=== PATIENT | female | born 2000 | race Two or more races ===

== ENCOUNTER 2024-11-20 06:23 | Inpatient (IN) | payer MEDICAID, SELFPAY ==
[2024-11-20] VITALS (266 sets, daily range): BP systolic 93–137; BP diastolic 50–90; PULSE 69–133; RESP 17–99; TEMP 36.6–37.7; O2SAT 96–100; BMI 23.6
--- NOTE | 2024-11-20 07:29 | PD.LDHP ---
Documentation for date of: 11/20/24 OB Labor/Induct. HPI History of Present Illness Chief complaint: 23 y/o 39w 1d presents to L&D with SROM in early labor : 1 Para: 0 Term pregnancies: 0 pregnancies: 0 Living children: 0 History of Abortions: Spontaneous and Elective: 0 History of Vaginal deliveries: 0 History of sections: No History of : No JASON: 11/26/24 Gestational Age (weeks): 39 Gestational Age (days): 1 History of present illness: 23 y/o 39w 1d presents to L&D with SROM, grossly ruptured in early labor. Cervix is 1/thick/-3 vertex, pelvic outlet is bit narrow. Pt has no family history of C/S. Mother delivered vaginally. GBS is neg. Pt's has been complicated by GDM diet and anemia. Pt has had excellent BS control during . EFW is about 3000g History of Present Dating criteria: based on 2nd trimester US only ([facility] sono confirmed due date) Adequate Care: Yes Ultrasounds: normal 1st trimester US and normal mid trimester US Obstetrical complications: gestational diabetes (Diet) and other (Anemia) Labs Maternal Blood Type: B Pos Labs: Negative: RPR, Hepatitis B, Rubella Titre, HIV, Chlamydia, Gonorrhea and Group Beta Strep and Unknown: Herpes Type 1, Herpes Type 2 and Covid-19 Review of Systems Review of Systems Systems Reviewed: All systems reviewed, normal except as documented Past Medical History Surgical History SURGICAL: Negative Section Meds Home Medications and Allergies Home Medications ?Medication ?Instructions ?Recorded ?Confirmed ?Type No Known Home Medications 11/20/24 11/20/24 History Allergies Allergy/AdvReac Type Severity Reaction Status Date / Time No Known Allergies Allergy Verified 11/20/24 07:47 OB Exam Physical Exam Vital signs: Temp Pulse Resp BP 99.0 F 83 17 122/84 11/20/24 06:40 11/20/24 07:22 11/20/24 06:39 11/20/24 07:22 Constitutional Constitutional: no acute distress Routine HEENT Exam Head: Present normocephalic and atraumatic Eye: Present EOMI, PERRL and normal accommodation ENT: Present mucous membranes moist Routine Neck Exam Neck: Present full ROM Routine Respiratory Exam Respiratory: Absent respiratory distress Routine Cardiovascular Exam Cardiovascular: Present RRR Routine Abdominal Exam Abdominal: Present soft Comments: Gravid uterus EFW 3000g Routine Exam External: Present normal urethra appearance; Absent lesions Detailed Labor and Delivery Exam Dilation (cm): 1 Effacement (%): thick Cervix position: posterior station: -3 Consistency: soft Presentation: Vertex Membranes: ruptured Amniotic fluid: clear Baseline heart rate: 130 monitor accelerations: 15x15 monitor decelerations: None linseed oil press tender variability: Moderate (11-25) Contraction frequency (min): 2-6 Routine Extremities Exam Extremities: Present full ROM Routine Back/Spine/Pelvis Exam Back/Spine: Present full ROM Routine Skin Exam Skin: Present intact, dry and warm Routine Neurological Exam Neurological: Present alert, oriented X3 and CN II-XII intact Routine Psychiatric Exam Psychiatric: Present normal affect and normal thought process OB Results Labs 11/20/24 07:15 OB Assessment & Plan Assessment and Plan (1) Normal labor: Status: Acute (2) Diet controlled gestational diabetes mellitus (GDM): Status: Acute (3) Anemia affecting in third trimester: Status: Acute (4) Spontaneous rupture of amniotic membranes: Status: Acute Additional Plan Induction method: none Plan: augmentation, anticipate NVD and consult prn Additional Plan Comment: Routine admit orders Continuous EFM Consult anesthesia for an epidural (2) Diet controlled gestational diabetes mellitus (GDM) Qualifiers: Trimester: third trimester Qualified Code(s): O24.410 - Gestational diabetes mellitus in , diet controlled
[2024-11-20 08:45] LABS: Basophils % (Auto) 0 % (0-2.5); Eosinophils # (Auto) 0.1 Thou/mm3 (0.0-0.5); Eosinophils % (Auto) 1 % (0-10); Hematocrit 36.5 % (36.0-46.0); Hemoglobin 11.8 g/dL (12.0-16.0); Immature Granulocytes % (Auto) 1 % (0-0); Immature Granulocytes Auto 0.05 Thou/mm3 (0.00-0.00); Lymphocytes # (Auto) 3.6 Thou/mm3 (1.0-4.8); Lymphocytes % (Auto) 34 % (10-50); Mean Corpuscular HGB Conc 32.3 g/dl (31.0-37.0); Mean Corpuscular Volume 81 fL (80-100); Monocytes # (Auto) 0.7 Thou/mm3 (0.0-0.8); Monocytes % (Auto) 6 % (0-12); Neutrophils # (Auto) 6.3 Thou/mm3 (1.8-7.7); Neutrophils % (Auto) 59 % (37-80); Nucleated Red Blood Cell % 0 /100 WBC (0); Platelet Count 204 Thou/mm3 (140-440); RDW Standard Deviation 56.7 fL (36.4-46.3); Red Blood Count 4.53 Miln/mm3 (4.00-5.20); White Blood Count 10.7 Thou/mm3 (3.6-11.0)
[2024-11-20 09:18] LABS: Syphilis Nonreactive (Nonreactive)
--- NOTE | 2024-11-20 09:40 | PD.LDPN ---
Documentation for date of: 11/20/24 OB Labor Progress Note Pain Control Pain control: other (requesting an epidural) Pelvic Exam Dilation (cm): 3 Effacement (%): 80 station: 0 Amniotic membrane status: Ruptured Contractions Monitor mode: External Contraction frequency: 2-3 Contraction duration: 40-60 Contraction phase: Contraction Contraction intensity: Moderate Status status: Category l Assessment and Plan Assessment: other (Latent labor) Plan OB labor note: continuous present management Comments: Pt to get an epidural Pt is in labor Dr. Ardon updated Anticipate
[2024-11-20] MEDS: RINGERS LACTATED 1000 ML 1,000 ML 125 ML IV ×4 (10:53→15:49)
[2024-11-20 13:30] LABS: Amphetamine/Metham Scrn,Ur OB Negative (Negative); Benzoylecgonine Screen, Ur OB Negative (Negative); Opiate Screen,Urine OB Negative (Negative); THC Screen,Urine OB Negative (Negative)
--- NOTE | 2024-11-20 14:30 | PD.LDPN ---
Documentation for date of: 11/20/24 OB Labor Progress Note Pain Control Pain control: epidural Pelvic Exam Dilation (cm): 5 Effacement (%): 90 station: 0 Amniotic membrane status: Ruptured Contractions Monitor mode: External Contraction frequency: 3-5 Contraction phase: Contraction Contraction intensity: Moderate Status status: Category l Assessment and Plan Assessment: active labor Plan OB labor note: begin Pitocin augmentation Comments: Pt is comfortable with the epidural Start pitocin per protocol Anticipate
[2024-11-20] MEDS: OXYTOCIN in NS 30 units 30 UNIT/500 ML BAG IV (14:45)
--- NOTE | 2024-11-20 16:28 | PD.LDPN ---
Documentation for date of: 11/20/24 OB Labor Progress Note Pain Control Pain control: epidural Pelvic Exam Effacement (%): 90 station: +1 Amniotic membrane status: Ruptured Comments: Bloody show Contractions Monitor mode: External Contraction frequency: 2-3 Contraction duration: 40-60 Contraction phase: Contraction Contraction intensity: Strong Status status: Category l Assessment and Plan Assessment: active labor Plan OB labor note: continuous present management Comments: Pt is progressing well, some bloody show, abdomen is non-tender, cat 1 tracing. Anticipate
[2024-11-20] MEDS: ACETAMINOPHEN IVPB 1,000 MG/100 ML VIAL 250 MG IV (16:47)
--- NOTE | 2024-11-20 18:11 | PD.LDPN ---
Documentation for date of: 11/20/24 OB Labor Progress Note Pain Control Pain control: epidural Pelvic Exam Dilation (cm): 9 Effacement (%): 90 station: +1 Amniotic membrane status: Ruptured Contractions Monitor mode: External Contraction frequency: 2-3 Contraction duration: 40-60 Contraction pattern: Tachysystole Contraction phase: Contraction Contraction intensity: Strong Status status: Category ll Assessment and Plan Assessment: active labor Plan OB labor note: continuous present management Comments: Terbutaline x1 now Scalp stim, reactive Dr. Ardon updated Anticipate
[2024-11-20] MEDS: TERBUTALINE SULF INJ 1 MG/ML VIAL 0.25 MG SC (18:12)
--- NOTE | 2024-11-20 19:04 | PD.LDPN ---
Documentation for date of: 11/20/24 OB Labor Progress Note Pain Control Pain control: epidural Pelvic Exam Dilation (cm): 8 Effacement (%): 90 station: +1 Amniotic membrane status: Ruptured Contractions Monitor mode: External Contraction frequency: 2-4 Contraction duration: 40-60 Contraction phase: Contraction Contraction intensity: Strong Status status: Category l Assessment and Plan Assessment: active labor Plan OB labor note: continuous present management Comments: Pt was zaria at last check, fetus was lower, but pt is not 9 cm, pt is 8 cm SROM since 429, so will start abx now Anticipate
[2024-11-20] MEDS: Ampicillin Inj 2,000 MG in SODIUM CHLORIDE 0.9% (POP) 100 ML 200 MG IV (19:20)
[2024-11-20] MEDS: Ampicillin Inj 1,000 MG in SODIUM CHLORIDE 0.9% (Popper) 50 ML 50 MG IV (23:24)
[2024-11-21] VITALS (56 sets, daily range): BP systolic 101–166; BP diastolic 56–101; PULSE 68–126; RESP 16–20; TEMP 36.4–37.9; O2SAT 93–100
[2024-11-21] MEDS: ACETAMINOPHEN IVPB 1,000 MG/100 ML VIAL 250 MG IV (00:47)
[2024-11-21] MEDS: TERBUTALINE SULF INJ 1 MG/ML VIAL 0.25 MG SC (01:23)
[2024-11-21] MEDS: METOCLOPRAMIDE INJ 5 MG/ML VIAL 2 ML 10 MG IVP (02:05)
[2024-11-21] MEDS: FAMOTIDINE INJ 10 MG/ML VIAL 2 ML 20 MG IV (02:05)
[2024-11-21] MEDS: ceFAZolin/D5W 2 GM IV 2 GM/100 ML BAG IV (02:05)
--- NOTE | 2024-11-21 02:13 | PD.LDPN ---
Documentation for date of: 11/21/24 OB Labor Progress Note Pelvic Exam Dilation (cm): 9 Effacement (%): 90 station: +1 Amniotic membrane status: Ruptured Comments: I was called by the charge nurse at 1:37 AM to review the strip. Patient had a prolonged deceleration lasting for about 4 minutes. On examination by the nurse she was reported to me as having anterior thick lip. Of note this patient has been 8 cm since 6 PM. Patient has a prolonged rupture of membranes. On review of heart tone variability was minimal since 11:30 PM although there were accelerations present. Tachysystole noted and orders for withholding Pitocin and giving terbutaline given. After about 15 to 20 minutes of terbutaline even if the contractions are spaced apart the variability continues to be minimal and along with that baby is now tachycardic with a baseline in 160. Accelerations are still present. Looking at the overall clinical picture primary low-transverse was called for category 2 heart tone. Although she did not meet the criteria for failure to progress, which is no change in cervical status over 6 hours in spite of Pitocin and rupture of membrane, the patient chávez has made very minimal cervical private branch exchange service advisor the past 8 hours. I discussed the option of expectant management with the patient and chances of chorioamnionitis. Primary low-transverse called within 30 minutes Contractions Monitor mode: External Contraction frequency: 2-4 Contraction pattern: Tachysystole Contraction phase: Contraction Contraction intensity: Strong Status status: Category l
--- NOTE | 2024-11-21 03:14 | EKG_ITS ---
[facility] Test Date: 2024-11-21 Pat Name: LATOYA GOMEZ [facility] Gender[facility] Female Manager Ccu: ECOBN1 : 2000 Requested By: Bryanna Ardon Order Number: [id number] Reading MD: Bryanna Ardon Measurements Intervals [place] Rate: 107 P: 63 GA: 144 QRS: 63 QRSD: 73 T: 36 QT: 342 QTc: 458 Interpretive Statements SINUS TACHYCARDIA LOW QRS VOLTAGE IN EXTREMITY LEADS ABNORMAL RHYTHM ECG No previous ECG available for comparison /[id number]/[email or web address]/[id number]/[id number]
--- NOTE | 2024-11-21 03:14 | XR_ITS ---
Examination: AP chest single view Technique one AP portable semiupright chest single view Exam date and time: November 21, 2024 0326 hrs. Indications: Sepsis alert Findings: No significant cardiac enlargement taking into account AP projection Mild vascular congestion. No lobar pneumonia Impression: No lobar pneumonia
--- NOTE | 2024-11-21 03:16 | ESOP_ITS ---
Operative Note - MECHANICAL PROJECT MANAGER Procedure Date of procedure: 11/21/24 Procedure Performed: primary Low transverse Csection Indication: cat 2 FHT, Prolonged decel for 4 minutes minimal variability, tachycardia maternal fever, possible chorioamnionitis Pre-Op diagnosis: same Post-Op diagnosis: triple antibiotics ordered Sepsis work up Anesthesia type: Spinal Procedure description: Informed consent was obtained and the patient was taken to the operating room.? Identity was confirmed by double identifiers and she was placed on the operating table.The abdomen and perineum were prepped in the usual sterile fashion and a Claire catheter was placed to continuous drainage.? Sterile drapes were applied.??A Pfannenstiel skin incision was made with a scalpel and carried to the subcutaneous fat up to the rectus fascia.? The rectus fascia was incised on either side of the midline and the incisions were extended bilaterally.? The fascia was gently dissected off the ventral surface of the rectus muscle both superiorly and inferiorly. extensive adhesiolysis was done between musle , peritoneum. Carefully a peritioneal window created hysterotomy incision made and extended bluntly with finger. Rupture of membranes revealed clear fluid. The baby was found vertex presentation and was delivered via vertex. The umbilical cord , was doubly clamped, divided and the was handed over to the waiting team. The placenta delivered by controlled cord traction . The interior of the uterus was now thorougly cleaned of all blood and debris and membranes.?The? hysterotomy was closed using 0 vicryl suture in double layers. Once the repair was completed the hysterotomy was inspected, was noted to be adequately hemostatic. The rectus fascia was repaired using 0 vicryl in a running fashion.? The subcutaneous layer was now, approximated with 3-0 vicryl in double layers.? All bleeding points were cauterized using the Bovie.?The skin was closed using 4-0 Monocryl in a subcuticular fashion.? The skin was cleaned and a sterile dressing was applied. The patient was now undraped, the abdomen and back were thoroughly cleaned and she was now transferred to the recovery room in a stable condition Estimated blood loss (ml): 400 Diagnosis Problem List Completed Was Problem List Reviewed/Reconciled?: Yes
--- NOTE | 2024-11-21 03:21 | PD.LDDELS ---
Data (Garcia) Data Hx Section: No : 1 Term: 0 : 0 : 0
--- NOTE | 2024-11-21 03:27 | PD.EVENT ---
Documentation for date of: 11/21/24 Event Note Event Note: while in the OR , the patient had an episode where she was not following commands from anasthesia provider to breathe deeply. O2 saturation was 96% with mask and patinet had tachycardia. Patinet also was febrile. baby was delivered. After the procedure there was satisfactory venntillatory effort.Sepsis work up ordered, triple antibiotic started IV fluid 2-3 L to be given. DIC panel was ordered
[2024-11-21 03:44] LABS: Basophils % (Auto) 0 % (0-2.5); Eosinophils % (Auto) 0 % (0-10); Hematocrit 30.2 % (36.0-46.0); Hemoglobin 9.9 g/dL (12.0-16.0); Immature Granulocytes % (Auto) 1 % (0-0); Immature Granulocytes Auto 0.13 Thou/mm3 (0.00-0.00); Lymphocytes # (Auto) 0.9 Thou/mm3 (1.0-4.8); Lymphocytes % (Auto) 4 % (10-50); Mean Corpuscular HGB Conc 32.8 g/dl (31.0-37.0); Mean Corpuscular Hemoglobin 26.8 pg (25.0-35.0); Mean Corpuscular Volume 82 fL (80-100); Monocytes # (Auto) 1.6 Thou/mm3 (0.0-0.8); Monocytes % (Auto) 7 % (0-12); Neutrophils # (Auto) 19.3 Thou/mm3 (1.8-7.7); Neutrophils % (Auto) 88 % (37-80); Nucleated Red Blood Cell % 0 /100 WBC (0); Platelet Count 168 Thou/mm3 (140-440); RDW Standard Deviation 58.7 fL (36.4-46.3); Red Blood Count 3.69 Miln/mm3 (4.00-5.20)
[2024-11-21 03:46] LABS: Lactate (Lactic Acid) 6.1 mMol/L (0.4-2.0)
[2024-11-21] MEDS: RINGERS LACTATED 1000 ML 1,000 ML 999 ML IV ×2 (03:48→05:28)
[2024-11-21 04:01] LABS: Fibrinogen 415 mg/dL (175-375); INR 0.9 (0.9-1.3); Partial Thromboplastin Time 33.8 Seconds (22.0-36.0); Prothrombin Time 10.4 Seconds (9.0-12.2)
[2024-11-21 04:01] LABS: Troponin I < 0.002 ng/mL (0.0-0.045)
[2024-11-21] MEDS: Ampicillin Inj 2,000 MG in SODIUM CHLORIDE 0.9% (POP) 100 ML 200 MG IV ×3 (04:08→16:23)
[2024-11-21 04:10] LABS: D-Dimer > 3820 ng/mL (<600)
--- NOTE | 2024-11-21 04:13 | PC.NURSE ---
Md garcia called for results of lactic acid and fibrinogen. made aware of results. new order for 2 more LR bolus then 2 pits to follow.
[2024-11-21 04:20] LABS: B-Type Natriuretic Peptide 410 pg/mL (0-100)
[2024-11-21] MEDS: CLINDAMYCIN 900MG IVPB 900 MG in PRE-MIXED 1 BAG 50 MG IV ×3 (04:50→21:53)
[2024-11-21 06:35] LABS: Reflex Lactate? Y
[2024-11-21 07:22] LABS: Basophils # (Auto) 0.1 Thou/mm3 (0.0-0.2); Basophils % (Auto) 0 % (0-2.5); Eosinophils % (Auto) 0 % (0-10); Hematocrit 32.4 % (36.0-46.0); Hemoglobin 10.8 g/dL (12.0-16.0); Immature Granulocytes % (Auto) 1 % (0-0); Immature Granulocytes Auto 0.15 Thou/mm3 (0.00-0.00); Lymphocytes # (Auto) 1.3 Thou/mm3 (1.0-4.8); Lymphocytes % (Auto) 5 % (10-50); Mean Corpuscular HGB Conc 33.3 g/dl (31.0-37.0); Mean Corpuscular Hemoglobin 26.2 pg (25.0-35.0); Mean Corpuscular Volume 79 fL (80-100); Monocytes # (Auto) 1.1 Thou/mm3 (0.0-0.8); Monocytes % (Auto) 4 % (0-12); Neutrophils # (Auto) 26.1 Thou/mm3 (1.8-7.7); Neutrophils % (Auto) 91 % (37-80); Nucleated Red Blood Cell # 0.02 Thou/mm3 (0.00-0.00); Nucleated Red Blood Cell % 0 /100 WBC (0); Platelet Count 181 Thou/mm3 (140-440); RDW Standard Deviation 55.5 fL (36.4-46.3); Red Blood Count 4.12 Miln/mm3 (4.00-5.20); White Blood Count 28.7 Thou/mm3 (3.6-11.0)
[2024-11-21 07:40] LABS: Anion Gap 10 (7-16); BUN/Creatinine Ratio 10 Ratio (12-20); Blood Urea Nitrogen 6 mg/dL (9-23); Carbon Dioxide 20.8 mMol/L (20.0-31.0); Chloride 110 mMol/L (98-107); Creatinine (Component) 0.6 mg/dL (0.6-1.3); Estimated Creatinine Clearance 110.4 mL/min (>60); Glucose 119 mg/dL (74-106); Osmolality,Calculated 279 (275-295); Potassium 3.9 mMol/L (3.4-5.1); Sodium 141 mMol/L (136-145); eGFR > 60 See Note
[2024-11-21] MEDS: GENTAMICIN IV (09:00)
[2024-11-21] MEDS: SODIUM CHLORIDE 0.9% IV (09:00)
[2024-11-21] MEDS: KETOROLAC INJ 30 MG/ML VIAL IVP (10:56)
--- NOTE | 2024-11-21 12:36 | ESPR_ITS ---
Subjective Subjective Interval history: Patient doing well overall. Pain is controlled. Surgery was at 0200 this morning, so she is not yet ambulating. Robb catheter in place draining clear yellow urine. Tolerated breakfast without nausea/vomiting. No longer feeling fevers/chills. She has no CP/SOB. She is receiving triple abx therapy for chorioamnionitis --> sepsis. Exam Vital Signs Temp Pulse Resp BP Pulse Ox O2 Del Method 97.8 F 96 16 113/72 97 Room Air 11/21/24 07:00 11/21/24 08:15 11/21/24 08:15 11/21/24 08:15 11/21/24 08:15 11/21/24 08:15 Narrative Exam General: well developed, well nourished, no acute distress, conversant Cardiac: normal heart rate Lungs: breathing without distress Abdomen: soft, post-gravid, non-tender, no rebound or guarding, pfannenstiel incision covered by dry/clean/intact pressure dressing. No strike-through. Fundus firm at u-2cm. Extremities: no pain with palpation of calves, trace edema of BLE. SCDs on and functioning. Objective Labs 11/21/24 07:10 11/21/24 07:10 Labs: Laboratory Results - last 24 hr 11/20/24 11/21/24 11/21/24 08:01 03:20 03:24 WBC 22.0 H D RBC 3.69 L Hgb 9.9 L Hct 30.2 L MCV 82 MCH 26.8 MCHC 32.8 RDW Std Deviation 58.7 H Plt Count 168 D Neut % (Auto) 88 H Lymph % (Auto) 4 L [place] % (Auto) 7 Eos % (Auto) 0 Baso % (Auto) 0 Neut # (Auto) 19.3 H Lymph # (Auto) 0.9 L [place] # (Auto) 1.6 H Eos # (Auto) 0.0 Baso # (Auto) 0.0 Immature Gran # (Auto) 0.13 H Absolute Nucleated RBC 0.00 Immature Gran % 1 H Nucleated RBC % 0 PT 10.4 INR 0.9 APTT 33.8 Fibrinogen 415 H D-Dimer > 3820 H Sodium Potassium Chloride Carbon Dioxide Anion Gap BUN Creatinine Estim Creat Clear Calc eGFR BUN/Creatinine Ratio Glucose Calculated Osmolality Lactic Acid 6.1 H* Calcium Troponin I < 0.002 B-Natriuretic Peptide 410 H Urine Opiates Screen Negative U Amphetamin/Meth Scrn Negative U Cocaine Metab Screen Negative U Marijuana (THC) Screen Negative 11/21/24 07:10 WBC 28.7 H D RBC 4.12 Hgb 10.8 L Hct 32.4 L MCV 79 L MCH 26.2 MCHC 33.3 RDW Std Deviation 55.5 H Plt Count 181 Neut % (Auto) 91 H Lymph % (Auto) 5 L [place] % (Auto) 4 Eos % (Auto) 0 Baso % (Auto) 0 Neut # (Auto) 26.1 H Lymph # (Auto) 1.3 [place] # (Auto) 1.1 H Eos # (Auto) 0.0 Baso # (Auto) 0.1 Immature Gran # (Auto) 0.15 H Absolute Nucleated RBC 0.02 H Immature Gran % 1 H Nucleated RBC % 0 PT INR APTT Fibrinogen D-Dimer Sodium 141 Potassium 3.9 Chloride 110 H Carbon Dioxide 20.8 Anion Gap 10 BUN 6 L Creatinine 0.6 Estim Creat Clear Calc 110.4 eGFR > 60 BUN/Creatinine Ratio 10 L Glucose 119 H Calculated Osmolality 279 Lactic Acid 3.0 H Calcium 8.0 L Troponin I B-Natriuretic Peptide Urine Opiates Screen U Amphetamin/Meth Scrn U Cocaine Metab Screen U Marijuana (THC) Screen Assessment & Plan Problem List (1) care following delivery: Status: Acute Assessment and plan: Vidhi is a 23yo G1 nowP1 s/p uncomplicated PLTCS for Cat II FHRT in the setting of chorioamnionitis, doing well on POD 0. Surgery was around 0200 this morning. She was started on triple abx for chorio and there was concern for development of sepsis, so sepsis workup was done and she received appropriate IVF. Initial lactic acid 6.1 at 0324. Dropped to 3.0 when repeated at 0710. Last elevated temp was 100.3F at 0040. CXR was normal. Post-op Hgb 10.8. Creatinine 0.6. Vitals wnl, benign exam. She is satting 97% in RA. Normotensive, pulse 96. Hemodynamically stable. complicated by: A1GDM Plan: -Continue routine /post-op care -Continue triple abx IV therapy for 48hr post-op -Remove robb at 12hr post-op with 6hr due to void -Regular diet -Toradol 30mg IV Q6hr x24hr then switch to motrin 800mg PO Q8hr. For breakthrough, [place] 5/325mg PO Q6hr prn pain -IS ordered, encourage regular use (2) Chorioamnionitis, delivered, current hospitalization: Status: Acute (3) Diet controlled gestational diabetes mellitus (GDM): Status: Acute (4) Anemia affecting in third trimester: Status: Acute (5) Spontaneous rupture of amniotic membranes: Status: Acute Time Spent With Patient Time: Total time spent is greater than 50% in coordination of care (as documented) at patient's floor/unit and/or counseling patient:
--- NOTE | 2024-11-21 14:37 | PC.NURSE ---
second bag of oxytoxin hang per MD orders.
[2024-11-21] MEDS: OXYTOCIN in NS 20 units 20 UNIT/1,000 ML BAG 125 UNIT IV (14:39)
--- NOTE | 2024-11-21 15:15 | PC.NURSE ---
robb catheter removed per at 1505, pt tolerated well, 300 ml yellow urine.
[2024-11-21] MEDS: ACETAMINOPHEN 325 MG TABLET 650 MG PO (18:14)
[2024-11-21 20:04] LABS: Gentamicin, Random 1.1 mcg/mL (4.0-10.0)
--- NOTE | 2024-11-21 21:53 | OBDSUM_ITS ---
Data (Garcia) Data Hx Section: No : 1 Para: 0 Term: 0 : 0 : 0 Delivery Data (Garcia) Labor Data ROM Date: 11/20/24 ROM Time: 04:30 Rupture Type: SROM Amniotic Fluid: Clear Delivery Data Labor Onset Stage 1 Date: 11/20/24 Labor Onset Stage 1 Time: 12:00 Labor Onset Stage 2 Date: 11/21/24 Labor Onset Stage 2 Time: 02:35 Delivery Date: 11/21/24 Delivery Time: 02:35 Gestational age (weeks): 39 Gestational age (days): 2 Placenta Delivery Date: 11/21/24 Placenta Delivery Time: 02:36 Delivered by: Bryanna Ardon Delivery nurse: Minerva Lopez Other staff at delivery: Nurse Other staff at delivery: Process Improvement Engineer Other staff at delivery: Flor Monaco Other staff at delivery: Greg Guo Delivery Method Delivery: Delivery Type: Primary Presentation: Vertex Anesthesia Type Primary Anesthesia: Epidural Secondary Anesthesia: Spinal Placenta Placenta Delivery: Manual Placenta Sent for Examination: Yes Cord Sample: Cord Blood Obtained, Cord Gases Arterial and Cord Gases Venous EBL Estimated blood loss (ml): 400 Umbilical Cord Umbilical Vessels: 3 Data (Garcia) [place] Data Gender: Female Infant Weight Grams: 3365 1 Minute Total: 9 5 Minute Total: 9
[2024-11-22] MEDS: Ampicillin Inj 2,000 MG in SODIUM CHLORIDE 0.9% (POP) 100 ML 200 MG IV ×5 (00:50→23:54)
[2024-11-22 04:00] VITALS: BP 111/69; PULSE 103; RESP 20; TEMP 37; O2SAT 97
[2024-11-22] MEDS: CLINDAMYCIN 900MG IVPB 900 MG in PRE-MIXED 1 BAG 50 MG IV ×3 (05:03→22:19)
[2024-11-22 05:19] LABS: Lactate (Lactic Acid) 0.9 mMol/L (0.4-2.0)
[2024-11-22 05:22] LABS: Basophils % (Auto) 0 % (0-2.5); Eosinophils % (Auto) 0 % (0-10); Hematocrit 28.1 % (36.0-46.0); Hemoglobin 9.6 g/dL (12.0-16.0); Immature Granulocytes % (Auto) 1 % (0-0); Immature Granulocytes Auto 0.12 Thou/mm3 (0.00-0.00); Lymphocytes # (Auto) 2.1 Thou/mm3 (1.0-4.8); Lymphocytes % (Auto) 10 % (10-50); Mean Corpuscular HGB Conc 34.2 g/dl (31.0-37.0); Mean Corpuscular Hemoglobin 26.7 pg (25.0-35.0); Mean Corpuscular Volume 78 fL (80-100); Monocytes # (Auto) 0.9 Thou/mm3 (0.0-0.8); Monocytes % (Auto) 4 % (0-12); Neutrophils # (Auto) 17.8 Thou/mm3 (1.8-7.7); Neutrophils % (Auto) 85 % (37-80); Nucleated Red Blood Cell % 0 /100 WBC (0); Platelet Count 168 Thou/mm3 (140-440); RDW Standard Deviation 56.2 fL (36.4-46.3); Red Blood Count 3.59 Miln/mm3 (4.00-5.20); White Blood Count 20.9 Thou/mm3 (3.6-11.0)
[2024-11-22] MEDS: DOCUSATE SOD 100 MG CAPSULE PO (08:43)
[2024-11-22] MEDS: IBUPROFEN TAB 400 MG TABLET 800 MG PO (08:43)
[2024-11-22] MEDS: SODIUM CHLORIDE 0.9% IV (08:44)
[2024-11-22] MEDS: GENTAMICIN IV (08:44)
[2024-11-22 08:50] VITALS: BP 109/73; PULSE 106; RESP 18; TEMP 37.4; O2SAT 96
--- NOTE | 2024-11-22 15:12 | ESPR_ITS ---
Subjective Subjective Interval history: Patient doing well overall. Pain is controlled. She is ambulating no lightheadedness/dizziness. Voiding spontaneously since robb was removed, no issues. Feels some discomfort as bladder fills that is relieved once she voids. Tolerating regular diet without nausea/vomiting. Passing gas. No fevers/chills, no CP/SOB. Exam Vital Signs Temp Pulse Resp BP Pulse Ox O2 Del Method 99.3 F 106 H 18 109/73 96 Room Air 11/22/24 08:50 11/22/24 08:50 11/22/24 08:50 11/22/24 08:50 11/22/24 08:50 11/22/24 08:50 Narrative Exam General: well developed, well nourished, no acute distress, conversant Cardiac: normal heart rate Lungs: breathing without distress Abdomen: soft, post-gravid, non-tender, no rebound or guarding, Outer pressure dressing removed, pfannenstiel incision covered by dry/clean/intact prineo bandage. Incision well reapproximated. No erythema, drainage or induration. Fundus firm at u-2cm. Extremities: no pain with palpation of calves, trace edema of BLE Objective Labs 11/22/24 05:10 11/21/24 07:10 Labs: Laboratory Results - last 24 hr 11/21/24 11/22/24 19:26 05:10 WBC 20.9 H D RBC 3.59 L Hgb 9.6 L Hct 28.1 L MCV 78 L MCH 26.7 MCHC 34.2 RDW Std Deviation 56.2 H Plt Count 168 Neut % (Auto) 85 H Lymph % (Auto) 10 [place] % (Auto) 4 Eos % (Auto) 0 Baso % (Auto) 0 Neut # (Auto) 17.8 H Lymph # (Auto) 2.1 [place] # (Auto) 0.9 H Eos # (Auto) 0.0 Baso # (Auto) 0.0 Immature Gran # (Auto) 0.12 H Absolute Nucleated RBC 0.00 Immature Gran % 1 H Nucleated RBC % 0 Lactic Acid 0.9 Random Gentamicin 1.1 L Assessment & Plan Problem List (1) care following delivery: Status: Acute Assessment and plan: Vidhi is a 23yo G1 now P1 s/p uncomplicated PLTCS for Cat II FHRT in the setting of chorioamnionitis, doing well on POD 1. Surgery was around 0200 on 11/21. She was started on triple abx for chorio and there was concern for development of sepsis, so sepsis workup was done and she received appropriate IVF. Initial lactic acid 6.1 at 0324. Dropped to 3.0 when repeated at 0710. Now 0.9. Last elevated temp was 100.3F at 0040 on 11/21. CXR was normal. Post-op Hgb 10.8 --> 9.6. WBC count 28.7 --> 20.9 Vitals wnl (slight occasional tachycardia), benign exam. She is satting 96% in RA. Hemodynamically stable. complicated by: A1GDM Plan: -Continue routine /post-op care -Continue triple abx IV therapy for 48hr post-op (until 0200 on 11/23) -Regular diet -Motrin 800mg PO Q8hr. For breakthrough, [place] 5/325mg PO Q6hr prn pain -IS and ambulation encouraged. -Hopeful for discharge tomorrow morning if continues to meet all milestones (2) Chorioamnionitis, delivered, current hospitalization: Status: Acute (3) Diet controlled gestational diabetes mellitus (GDM): Status: Acute (4) Anemia affecting in third trimester: Status: Acute (5) Spontaneous rupture of amniotic membranes: Status: Acute Time Spent With Patient Time: Total time spent is greater than 50% in coordination of care (as documented) at patient's floor/unit and/or counseling patient:
--- NOTE | 2024-11-22 15:18 | PC.SS ---
SS conducted bedside contact with the patient to address nursing referral indicating that patient was late to care at 15 weeks.? SS introduced self and role.? SS asked for permission to speak in front of spouse.? Patient agreed.? Patient confirmed late to care because her menstrual cycle is irregular and she didn?t know she was . Patient received care under the care of Leanne Riggins NP. NB is patient?s first child. ?NB was born on [birth year] via .? Patient states she will find a apparel stock checker at [facility]. ?FOB is Tony Garg.? FOB resides in the home. Patient states she plans on breast feeding and bottle feeding. Patient denies history of drugs or alcohol.? Patient denies any history of mental illness, CWS or DV. ?Patient is not aligned with WIC, FS or TANF. donor services technician provided resources to include:? Parenting Network, Warm Line and community numbers. Patient has access to appropriate supplies and equipment.? Patient has access to a car seat.? Patient describes possessing support system consisting of spouse and family. FOB to provide transportation home. No further intervention required at this time. Sanitary Engineer will be available to address any further concerns. SS updated bedside nurse.
[2024-11-22 16:00] VITALS: BP 106/70; PULSE 92; RESP 16; TEMP 37; O2SAT 99
[2024-11-22 20:07] VITALS: BP 118/82; PULSE 97; RESP 19; TEMP 37.1; O2SAT 96
[2024-11-23 04:02] VITALS: BP 114/77; PULSE 82; RESP 18; TEMP 37.3; O2SAT 97
[2024-11-23] MEDS: IBUPROFEN TAB 400 MG TABLET 800 MG PO (04:04)
[2024-11-23 07:45] VITALS: BP 121/79; PULSE 66; RESP 18; TEMP 36.3; O2SAT 99
[2024-11-23] MEDS: DOCUSATE SOD 100 MG CAPSULE PO (08:12)
--- NOTE | 2024-11-23 11:29 | PD.LDDS ---
DS: Providers Provider Date of admission: 11/20/24 06:55 Primary care physician: Physician No Primary/Family Admitting Provider: Leanne Riggins CNM Attending Provider on Admission: Bryanna Ardon MD Consults: 11/21/24 02:20 Referral Routine Comment: Attending Provider on DC: Bryanna Ardon MD Discharging Provider: Bryanna Ardon MD DS: Diagnosis Problem List Completed Was Problem List Reviewed/Reconciled?: Yes Summary/Hosp Course Brief History: 23 y/o , s/p PLTCS for Cat 2 FHT , chorioamnionitis @ 39w , has been afebrile for more than 48 hours , has met all PO milestones and can be discharged Peripartum Data Procedures: Procedures Operation Date: 11/21/24 02:15 Actual Procedure Side Surgeon p in OB Bryanna Ardon MD Time Spent with Patient Time attestation: Total time spent providing and/or coordinating discharge services: Exam Vital Signs Temp Pulse Resp BP Pulse Ox O2 Del Method 97.4 F 66 18 121/79 99 Room Air 11/23/24 07:45 11/23/24 07:45 11/23/24 07:45 11/23/24 07:45 11/23/24 07:45 11/23/24 07:45 Constitutional Constitutional: no acute distress Routine HEENT Exam Head: Present normocephalic and atraumatic Eye: Present EOMI and PERRL ENT: Present mucous membranes moist Routine Neck Exam Neck: Present supple and trachea midline Routine Respiratory Exam Respiratory: Present chest non-tender, lungs clear, normal breath sounds and no resp distress Routine Cardiovascular Exam Cardiovascular: Present RRR Routine Abdominal Exam Abdominal: Present soft and normoactive bowel sounds Routine Extremities Exam Extremities: Present full ROM Routine Skin Exam Skin: Present intact, dry and warm Routine Neurological Exam Neurological: Present alert, oriented X3 and CN II-XII intact Routine Psychiatric Exam Psychiatric: Present normal affect and normal thought process Discharge Plan Plan Patient Disposition: HOME (Self Care) Patient condition on transfer: Stable Prescriptions/Referrals Prescriptions/Med Rec: New hydrocodone-acetaminophen 5-325 mg Tablet 1 tab PO Q6H MDD 4 tabs PRN (Reason: Patient rated pain 7 to 8) 10 Days Qty: 10 0RF ibuprofen 800 mg tablet 800 mg PO Q8H PRN (Reason: See Comments) 10 Days Qty: 30 0RF polyethylene glycol 3350 17 gram powder in packet 17 g PO QDAY Qty: 14 0RF Referrals: No Primary/Family,Physician [Primary Care Provider] - Patient/Caregiver Discharge Instructions Discharge Activity: activity as tolerated and other Other Discharge Activity Instructions:: vaginal rest and no heavy lifting more than 10 pounds for 6 weeks[address] while taking narcotic. keep incision clean and dry, do not submerge. Other Discharge Diet Instructions: regular diet Education Materials: C Section Dc Print Language: Occitan Activity Restrictions/Additional Instructions: follow up with Dr. Ardon in 1 week for incision check, call clinic for appointment Stand Alone Forms: [employer] Award Info., Patient Portal Info Letter Discharge Order Discharge Orders: Discharge (Routine); Ordered 11/23/24 Ordered By: Bryanna Ardon Planned Discharge Date 11/23/24
[2024-11-23 12:30] VITALS: BP 125/84; PULSE 83; RESP 17; TEMP 36.6; O2SAT 99
== END 2024-11-23 13:30 | disposition home or self-care (01) | DRG 540 ==
LOC: S4SX 15:42 → S4NX 11-21 02:22
PROVIDERS: Obstetrics & Gynecology; Admitting Provider Nurse Practitioner Women's Health; Visit Provider Student in an Organized Health Care Education/Training Program
PROC: 10D00Z1 Extraction of Products of Conception, Low, Open Approach (ICD-10-PCS; CPT 59514; principal; 2024-11-21 02:30)
DX: O42.92 Full-term premature rupture of membranes, unspecified as to length of time between rupture and onset of labor (principal); O24.420 Gestational diabetes mellitus in childbirth, diet controlled; Z37.0 Single live birth; Z3A.39 39 weeks gestation of pregnancy; O41.1230 Chorioamnionitis, third trimester, not applicable or unspecified; O76 Abnormality in fetal heart rate and rhythm complicating labor and delivery; O99.02 Anemia complicating childbirth
CPT/HCPCS: 36415; 59025; 59409; 71045; 80048; 80170; 80307; 81001; 83605; 83880; 84484; 85007; 85025; 85027; 85379; 85384; 85610; 85730; 86780; 86850; 86900; 86901; 87040; 87086; 93005; 94762; A4649; J0131; J0290; J0689; J1580; J1885; J2250; J2274; J2371; J2590; J2765; J2795; J3010; J3105; J3490; J7050; J7120; S0077; A9270; J0736; J2270